=== PATIENT | female | born 1945 | race Caucasian/White ===

== ENCOUNTER → 2017-08-14 | Outpatient (CLI) | payer OTHER | LOC: CIMAGING 15:02 | PROVIDERS: ATTEND Family Medicine | DX: Z12.31 Encounter for screening mammogram for malignant neoplasm of breast (principal) | CPT/HCPCS: G0202 ==

== ENCOUNTER 2017-10-03 20:10 | Emergency (ER) | payer OTHER ==
[2017-10-03 20:23] VITALS: BP 123/81; PULSE 79; RESP 16; TEMP 98.1; O2SAT 94
[2017-10-03] MEDS ORDERED: TDAP ADULT 0.5 ML INJ (BOOSTRIX) IM ONE ×2 (20:25)
--- NOTE | 2017-10-03 20:29 | EDPHY ---
H & P Stated Complaint: LAC R 3RD FINGER Time Seen by Provider: 10/03/17 20:16 HPI/ROS: Chief Complaint: Finger laceration HPI: 71-year-old accidentally dropped a glass bottle on the ground. She bent over to pick it up but accidentally sustained a laceration to her right long finger when she tried to grab it. This happened about an hour prior to arrival. Does not recall her last tetanus. ROS: 10 point Review of Systems is negative except as noted in the HPI. PMH: Asthma Social History: [No] smoking, occasional alcohol, [ no recreational drug use] Family History: [non-contributory] Physical Exam: General: Awake, alert, no acute distress Right hand: She has a 1 cm laceration on the radial side of her distal phalanx of her right middle finger. There is no nail bed involvement. Sensations intact. She has full flexion extension. Capillary refills less than 2 seconds. Skin: No rash - Personal History Current Tetanus Diphtheria and Acellular Pertussis (TDAP): Yes Tetanus Vaccine Date: 2010 - Medical/Surgical History Hx Asthma: Yes Hx Chronic Respiratory Disease: No Hx Diabetes: No Hx Cardiac Disease: No Hx Renal Disease: No Hx Cirrhosis: No Hx Alcoholism: No Hx HIV/AIDS: No Hx Splenectomy or Spleen Trauma: No Other PMH: asthma. gerd. urine leaking improved with med. bilateral knee replacement, tonsillectomy - Social History Smoking Status: Never smoked Constitutional: Initial Vital Signs Temperature (C) 36.7 C 10/03/17 20:22 Heart Rate 79 10/03/17 20:22 Respiratory Rate 16 10/03/17 20:22 Blood Pressure 123/81 H 10/03/17 20:22 O2 Sat (%) 94 10/03/17 20:22 O2 Delivery Mode Room Air Allergies/Adverse Reactions: No Known Allergies Allergy (Verified 06/12/15 15:19) Home Medications: Medication Instructions Recorded Advair 250/50 (RX) 01/19/15 Oxybutynin 01/19/15 Proair Hfa Icu (RX) 01/19/15 Medical Decision Making Procedures: Procedure: Digital nerve block, indication is digit anesthesia for procedure. Patient was prepped with chlorhexidine Skin prep. 0.5% bupivacaine was infiltrated in the medial in lateral aspects for with a dorsal approach at the base of the proximal phalanx with blockage of both dorsal and volar nerves. Total of 1 mL was infiltrated. There were no complications. Procedure was performed by myself. Procedure: Laceration repair. Verbal consent was obtained from the patient. The 1.2 cm laceration on the right 3rd finger was anesthetized with a digital nerve block. The wound was irrigated, draped and explored to its base with a gloved finger. There were no deep structures involved. No tendon injury was identified. The wound was repaired with 5, 6-0 Ethilon simple interrupted sutures. The wound repair was uncomplicated. The procedure was performed by myself. - Data Points Medications Given: Discontinued Medications Diphtheria/Tetanus/Acell Pertussis (Boostrix) 0.5 ml IM .ONCE ONE Stop: 10/03/17 20:26 Last Admin: 10/03/17 20:29 Dose: 0.5 ml Departure - Departure Disposition: Home, Routine, Self-Care Clinical Impression: Laceration Condition: Good Instructions: Diphtheria/Acellular Pertussis/Tetanus Booster Vaccine (By injection), Care For Your Stitches (ED), Laceration (ED) Additional Instructions: Sutures need to be removed in 7 days, you may turn here or follow up with primary care physician. Return to the emergency department for increasing pain, redness, discharge from the wound, fevers, chills, or any other concerns. Referrals: Sosa Dawson MD [Medical Doctor] - As per Instructions
== END 2017-10-03 20:55 | disposition home or self-care (01) ==
LOC: CED 20:10
PROC: 0HQFXZZ Repair Right Hand Skin, External Approach (ICD-10-PCS; principal; 2017-10-03)
DX: S61.212A Laceration without foreign body of right middle finger without damage to nail, initial encounter (principal); J45.909 Unspecified asthma, uncomplicated; Z23 Encounter for immunization; W25.XXXA Contact with sharp glass, initial encounter

== ENCOUNTER → 2018-08-19 | Outpatient (CLI) | payer OTHER | LOC: CIMAGING 07:51 | PROVIDERS: ATTEND Family Medicine | DX: Z12.31 Encounter for screening mammogram for malignant neoplasm of breast (principal) ==